=== PATIENT | male | born 1990 | race Caucasian/White ===

== ENCOUNTER 2020-04-28 02:15 | Emergency (ER) | payer SELFPAY ==
[2020-04-28 02:18] VITALS: BP 142/90; PULSE 71; RESP 18; TEMP 36.7; O2SAT 98
--- NOTE | 2020-04-28 02:20 | ED.GENADUL_ITS ---
Discharge Plan Disposition Patient Disposition: HOME Condition: Good Discharge Details Chief Complaint: DentalOral Clinical Impression: Dental abscess ED Provider: Ludin Perez and New Rx's Prescriptions: New amoxicillin-pot clavulanate [Augmentin] 875-125 mg tablet 1 tab PO BID Qty: 20 RF: 0 hydrocodone-acetaminophen [[place]] 5-325 mg tablet 1 tab PO BID PRNQty: 4 RF: 0 Discharge Instructions Instructions: Dental Abscess (ED) Additional Instructions: Take antibiotic twice a day as prescribed. Short-term may use [place] until antibiotic is working then switch to ibuprofen and acetaminophen as we discussed alternating every 4 hours. Call dentist tomorrow to arrange follow-up for next week. Return to ED for increased facial pain/swelling, fever, difficulty breathing, inability to swallow. Medical Decision Making Patient with dental fracture and resulting infection with small gingival abscess. Benzocaine applied and needle aspiration with minimal pus drained. Patient will be started on Augmentin. [place] to go pack given for short-term pain relief. Once antibiotic has been started should be able to switch to ibuprofen and acetaminophen. Given list of dentists in the area to follow-up with. Return to ED for increasing facial pain/swelling, fever, difficulty breathing, inability to swallow. HPI General Mode of arrival: ambulatory . Date/Time Provider Initiated Documentation: 04/28/20 02:20 . Limitations to Documentation: no limitations . Information obtained by: patient and RN notes reviewed . HPI Narrative: Patient presents to the ED with right lower tooth pain and swelling. Patient broke ophthalmologic last evening. This evening pain is worse and he now has swelling. Ibuprofen is not helping. He is new to the area and does not have a dentist. He denies difficulty breathing or swallowing. He has had no fever. Related Data Home Medications Medication Instructions Recorded Confirmed amoxicillin-pot clavulanate 1 tab PO BID #20 tab 04/28/20 [Augmentin] hydrocodone-acetaminophen [[place]] 1 tab PO BID PRN #4 tab 04/28/20 Previous Rx's Medication Instructions Recorded amoxicillin-pot clavulanate 1 tab PO BID #20 tab 04/28/20 [Augmentin] hydrocodone-acetaminophen [[place]] 1 tab PO BID PRN #4 tab 04/28/20 Allergies Allergy/AdvReac Type Severity Reaction Status Date / Time No Known Allergies Allergy Unverified 04/28/20 02:20 General Stated Complaint: DentalOral MARQUISE: 4 Review of Systems Constitutional Constitutional: Denies fever(s) ENT Ears, Nose, Mouth, and Throat: Reports dental pain, Denies facial pain and Denies tongue swelling Cardiovascular Cardiovascular: Denies dyspnea Respiratory Respiratory: Denies dyspnea Allergic/Immunologic Allergic/Immunologic: Denies tongue swelling [facility] Medical History No active medical problems (Acute) Surgical History No significant past surgical history (Acute) Social History Smoking/Tobacco Use Status: Current every day Tobacco Type: cigarettes Drug use: Occasionally Substance use type: marijuana Do you feel safe at home: Yes Do you feel safe in your relationship?: Yes Exam Const General: cooperative and uncomfortable Orientation: alert and oriented x3 HENMT Head: normocephalic and atraumatic Face and sinus: normal facial exam Mouth: tongue normal Teeth and gingiva: abnormal tooth or associated gingiva (Tooth #30 fractured in half with gingival abscess present) Neck Neck: trachea midline and supple Course Vital Signs Vital signs: Vital Signs Temperature 98.1 F 04/28/20 02:18 Pulse 71 04/28/20 02:18 Respiratory Rate 18 04/28/20 02:18 Blood Pressure 142/90 H 04/28/20 02:18 Pulse Oximetry 98 04/28/20 02:18 Temperature 98.1 F 04/28/20 02:18 Temperature Source Oral 04/28/20 02:18 Pulse 71 04/28/20 02:18 Respiratory Rate 18 04/28/20 02:18 Blood Pressure 142/90 H 04/28/20 02:18 Blood Pressure Position Sitting 04/28/20 02:18 Pulse Oximetry 98 04/28/20 02:18 Oxygen Delivery Method Room Air 04/28/20 02:18 Oxygen Flow Rate 0 04/28/20 02:18 Pain Level 10 04/28/20 02:18 Procedures Abscess I/D Site: Other (Gingiva) Side (if applicable): Right Local Anesthetic: Other Anesthetic (Topical benzocaine) Technique: Needle Aspiration Irrigation: No Packing used?: None
[2020-04-28] MEDS: Amoxicillin 875/Clav. 125 TAB PO (02:44)
[2020-04-28] MEDS: HYDROcodone 5/Acetaminophen 325 TAB PO (02:44)
== END 2020-04-28 02:45 | disposition home or self-care (01) ==
LOC: ER 02:49
PROVIDERS: Emergency Provider Emergency Medicine
DX: S02.5XXA Fracture of tooth (traumatic), initial encounter for closed fracture (principal); K05.319 Chronic periodontitis, localized, unspecified severity; X58.XXXA Exposure to other specified factors, initial encounter
CPT/HCPCS: 10160

== ENCOUNTER 2020-08-10 07:58 | Emergency (ER) | payer SELFPAY ==
[2020-08-10 08:02] VITALS: BP 140/82; PULSE 97; RESP 16; TEMP 37.1; O2SAT 97
--- NOTE | 2020-08-10 08:11 | ED.GENADUL_ITS ---
Discharge Plan Disposition Patient Disposition: HOME Condition: Stable Discharge Details Clinical Impression: Dog bite of left hand Primary Care Provider: None,None ED Provider: Elsa Blanca Home Meds and New Rx's Prescriptions: New amoxicillin-pot clavulanate [Augmentin] 875-125 mg tablet 1 tab PO BID 10 Days Qty: 20 RF: 0 No Action No Known Home Meds RF: 0 Discharge Instructions Instructions: Animal Bite (ED) Additional Instructions: Follow up with primary care provider in 3-5 days. Return to ED sooner if any worsening or concerns. Increase oral fluids. Please take Tylenol or Ibuprofen with food every 4-6 hours as needed for pain and swelling. Take medications as prescribed. Return to the ED for any worsening swelling, red streaks traveling up your hand or arm. Fever or any concerns. Keep wounds clean and dry. Allow to air dry at least 2 hours every day. Stand Alone Forms: Work Release Medical Decision Making 30-year-old male presents to the ER with chief complaint of dog bite to left hand which occurred last night while breaking up a dog fight. He is complaining of fifth and fourth digit pain and decreased range of motion. He has a puncture wound noted to the dorsum of his hand, small puncture wounds noted to his fifth digit and fourth digit the nail bed base. Bleeding is controlled at this time. He reports that his tetanus vaccination is up-to-date. He describes his pain is moderate to severe. No radiation. Pain is constant. He did not take any medications prior to arrival EXAM: XR HAND LT COMPLETE INDICATION: Dog bite, R/O fx, FB. COMPARISON: No exams were available for comparison TECHNIQUE: 2D digital imaging was performed. FINDINGS: Patient was unable to remove his ring. There is gauze overlying the little finger. There is soft tissue swelling. No foreign body or fracture is seen. IMPRESSION: Soft tissue injury 5th finger. No fracture or foreign body. Patient was given let topical anesthetic, ibuprofen 8 or milligrams, ice pack, wound care and Percocet prior to discharge home. Patient was placed on Augmentin and received his first dose here in the department. Discussed home care, verbalizes understanding. Imaging obtained as noted above to rule out foreign body or fracture which is within normal limits. Instructed to follow-up with PCP and discuss strict return instructions, verbalized understanding. HPI General Mode of arrival: ambulatory . Date/Time Provider Initiated Documentation: 08/10/20 08:07 . Limitations to Documentation: no limitations . Information obtained by: patient . HPI Narrative: 30-year-old male presents to the ER with chief complaint of dog bite to left hand which occurred last night while breaking up a dog fight. He is complaining of fifth and fourth digit pain and decreased range of motion. He has a puncture wound noted to the dorsum of his hand, small puncture wounds noted to his fifth digit and fourth digit the nail bed base. Bleeding is controlled at this time. He reports that his tetanus vaccination is up-to-date. He describes his pain is moderate to severe. No radiation. Pain is constant. He did not take any medications prior to arrival. Related Data Home Medications Medication Instructions Recorded Confirmed Unknown [No Known Home Meds] 08/10/20 08/10/20 amoxicillin-pot clavulanate 1 tab PO BID 10 Days #20 tab 08/10/20 [Augmentin] Previous Rx's Medication Instructions Recorded amoxicillin-pot clavulanate 1 tab PO BID 10 Days #20 tab 08/10/20 [Augmentin] Allergies Allergy/AdvReac Type Severity Reaction Status Date / Time No Known Allergies Allergy Unverified 08/10/20 08:07 General Stated Complaint: AnimalBite MARQUISE: 4 Review of Systems Narrative: All systems reviewed & are unremarkable except as noted in HPI and below Integumentary/Breasts Skin/Breast: Reports wounds (Dog bite left hand) [facility] Medical History No active medical problems Surgical History No significant past surgical history Social History Smoking/Tobacco Use Status: Current every day Tobacco Type: cigarettes Drug use: Occasionally Substance use type: marijuana Do you feel safe at home: Yes Do you feel safe in your relationship?: Yes Exam Narrative Exam Narrative: Constitutional: Alert and oriented x3. Appears stated age. Normal body habitus. Head: Normocephalic, no trauma. Chest: RRR, Normal S1, S2, distal pulses intact. Resp: Lungs clear to auscultation bilaterally, no wheezes, rales, or rhonchi. Musculoskeletal: Normal gait, 5/5 strength to all four extremities. Has puncture wound noted to the dorsum of his left hand, small superficial puncture wounds and abrasions noted to his fifth digit and fourth digit. Skin: No suspicious rashes or lesions. Capillary refill less than 2 sec. Neurologic: Cranial nerves II-XII intact. Alert and oriented x 3. DTR's intact. Hematologic/Lymphatic: No ecchymosis, no lymphadenopathy. Extrem Hand/finger images: 1. Puncture wound 2. Superficial puncture wound 3. Superficial puncture wound Course Vital Signs Vital signs: Vital Signs Temperature 37.1 C 08/10/20 08:02 Pulse 97 H 08/10/20 08:02 Respiratory Rate 16 08/10/20 08:02 Blood Pressure 140/82 08/10/20 08:02 Pulse Oximetry 97 08/10/20 08:02 Temperature 37.1 C 08/10/20 08:02 Temperature Source Skin 08/10/20 08:02 Pulse 97 H 08/10/20 08:02 Respiratory Rate 16 08/10/20 08:02 Respiratory Effort Non-Labored 08/10/20 08:05 Blood Pressure 140/82 08/10/20 08:02 Blood Pressure Position Sitting 08/10/20 08:02 Pulse Oximetry 97 08/10/20 08:02 Oxygen Delivery Method Room Air 08/10/20 08:02 Oxygen Flow Rate 0 08/10/20 08:02 Pain Level 9 08/10/20 08:02 Comment 08/10/20 08:02
[2020-08-10] MEDS: Amoxicillin 875/Clav. 125 TAB PO (08:23)
[2020-08-10] MEDS: Lidocaine/Epinephri/Tetracaine Topical Gel 3 ML TP (08:23)
[2020-08-10] MEDS: Ibuprofen 800 MG TAB PO (08:23)
--- NOTE | 2020-08-10 08:38 | DI.RAD_ITS ---
EXAM: XR HAND LT COMPLETE INDICATION: Dog bite, R/O fx, FB. COMPARISON: No exams were available for comparison TECHNIQUE: 2D digital imaging was performed. FINDINGS: Patient was unable to remove his ring. There is gauze overlying the little finger. There is soft ti ssue swelling. No foreign body or fracture is seen. IMPRESSION: Soft tissue injury 5th finger. No fracture or foreign body. DATA REPOSITORY: RADIATION DOSE DELIVERED:
--- NOTE | 2020-08-10 08:58 | NUR.NOTE ---
Animal bite reported to Lars Whitman, health officer for [employer]-[phone], bite form faxed to [facility]-[phone].Nursing Note:
[2020-08-10] MEDS: oxyCODONE 5 mg/Acetaminophen 325 mg TAB 1 TAB PO (09:09)
--- NOTE | 2020-08-11 13:28 | NUR.NOTE ---
Nursing Note: Animal Bite report form faxed to [facility]. Akilah Alberto Fax [phone]
== END 2020-08-10 09:10 | disposition home or self-care (01) ==
PROVIDERS: Emergency Provider Registered Nurse Emergency
DX: S61.432A Puncture wound without foreign body of left hand, initial encounter (principal); S61.337A Puncture wound without foreign body of left little finger with damage to nail, initial encounter; S61.335A Puncture wound without foreign body of left ring finger with damage to nail, initial encounter; W54.0XXA Bitten by dog, initial encounter
CPT/HCPCS: 99283; 73130

== ENCOUNTER 2023-05-18 08:59 | Emergency (ER) | payer OTHER, SELFPAY ==
[2023-05-18 09:02] VITALS: PULSE 82; RESP 16; TEMP 36.6; O2SAT 99
--- NOTE | 2023-05-18 09:59 | ED.GENADUL_ITS ---
Discharge Plan Disposition Patient Disposition: Home Discharge Details Clinical Impression: Dental abscess, Pain, dental Primary Care Provider: None,None ED Provider: Katie Santillan Home Meds and New Rx's Prescriptions: New penicillin V potassium 500 mg tablet 500 mg PO QID 10 Days Qty: 40 0RF Discharge Instructions Instructions: Dental Abscess (ED), Toothache (ED) Additional Instructions: Start penicillin 500 mg every 6 hours for 10 days. Alternate 600 mg of ibuprofen every 3 hours with 1000 mg of acetaminophen as needed for pain. Call your dentist in the morning and return to the emergency department for any new or worsening symptoms such as difficulty breathing talking or swallowing, change in voice or any concerns. We recommend that you take a probiotic while on antibiotics. Discharge Data Discharge Physician: Katie Santillan [facility] General Date/Time Provider Initiated Documentation: 05/18/23 09:49 . Related Data Home Medications Medication Instructions Recorded Confirmed penicillin V potassium 500 mg 500 mg PO QID dental infection 10 05/18/23 tablet days #40 tabs Previous Rx's Medication Instructions Recorded penicillin V potassium 500 mg 500 mg PO QID dental infection 10 05/18/23 tablet days #40 tabs Allergies Allergy/AdvReac Type Severity Reaction Status Date / Time No Known Allergies Allergy Unverified 05/18/23 09:05 General Stated Complaint: DentalOral MARQUISE: 3 PFSH All Active Problems (Updated 05/18/23 @ 10:04 by Katie Santillan MD) Dental abscess (Acute) Pain, dental (Acute) Medical History No active medical problems Surgical History No significant past surgical history Social History Smoking/Tobacco Use Status: Current every day Tobacco Type: cigarettes Smoking risk assessment performed?: Yes Drug use: Occasionally Substance use type: marijuana Do you feel safe at home: Yes Do you feel safe in your relationship?: Yes Course Vital Signs Vital signs: Vital Signs Temperature 36.6 C 05/18/23 09:02 Pulse 82 05/18/23 09:02 Respiratory Rate 16 05/18/23 09:02 Pulse Oximetry 99 05/18/23 09:02 Temperature 36.6 C 05/18/23 09:02 Temperature Source Tympanic 05/18/23 09:02 Pulse 82 05/18/23 09:02 Respiratory Rate 16 05/18/23 09:02 Respiratory Effort Normal, Non-Labored 05/18/23 09:14 Blood Pressure Position Sitting 05/18/23 09:02 Pulse Oximetry 99 05/18/23 09:02 Oxygen Delivery Method Room Air 05/18/23 09:02 Oxygen Flow Rate 0 05/18/23 09:02 Pain Level 9 05/18/23 09:02 PAWSS Have you Been Recently Intoxicated or Drunk Within the Last 30 days?: No Have you Ever Experienced Previous Episodes of Alcohol Withdrawal?: No Have you ever Experienced Withdrawal Seizures?: No Have you ever Experienced Delirium Tremens(DT)s?: No Have you ever undergone Alcohol Rehabilitation Treatment (i.e, inpt ot outpatient treatment programs)?: No Have you ever Experienced Blackouts?: No Have you ever Combined Alcohol with other Downers within the last 90 days?: No Have you ever Combined Alcohol with any other Substance of Abuse during the last 90 days?: No Positive Blood Alcohol level on Presentation? [PCS.BAL]: No Evidence of Increased Autonomic Activity (i.e. HR>120, tremor, sweating, agitation, nausea)?: No Result: 0
--- NOTE | 2023-05-18 10:09 | ED.GENADUL_ITS ---
Discharge Plan Disposition Patient Disposition: Home Discharge Details Clinical Impression: Dental abscess, Pain, dental Primary Care Provider: None,None ED Provider: Katie Santillan Home Meds and New Rx's Prescriptions: New penicillin V potassium 500 mg tablet 500 mg PO QID 10 Days Qty: 40 0RF Discharge Instructions Instructions: Dental Abscess (ED), Toothache (ED) Additional Instructions: Start penicillin 500 mg every 6 hours for 10 days. Alternate 600 mg of ibuprofen every 3 hours with 1000 mg of acetaminophen as needed for pain. Call your dentist in the morning and return to the emergency department for any new or worsening symptoms such as difficulty breathing talking or swallowing, change in voice or any concerns. We recommend that you take a probiotic while on antibiotics. Discharge Data Discharge Physician: Katie Santillan Medical Decision Making This is a 33-year-old male with diffuse dental disease who presents with left lower jaw pain and swelling. He is declined a dental block or needle aspiration and was requesting penicillin. I will write for penicillin and acetaminophen here and advised him to follow-up with his primary care provider. I have advised him to return for difficulty breathing talking or swallowing or for any worsening pain fever or any concerns Differential Diagnosis Differential Diagnosis: Dental caries, gingivitis, dental abscess HPI General Date/Time Provider Initiated Documentation: 05/18/23 09:49 . History of Present Illness Patient did receive the following treatments prior to arrival, NSAID and Aspirin HPI Narrative: Time seen was 9:50 AM in bed 4. The patient is a 33-year-old male who presents with left lower jaw pain and swelling. He says that several months ago filling came out of the left lower molar and initially did not cause any pain until yesterday when he developed constant pain in the left lower jaw. Overnight he noted increased swelling of the left lower jaw. He denies any change in voice, difficulty breathing talking or swallowing. He last saw dentist several months ago and was told that he needs additional work done on his teeth. He states it feels like there is a grape in his cheek. He took 2 ibuprofen last night and 3 aspirin this morning with no relief. He denies any foul tasting discharge. He denies any fevers chills shortness of breath or difficulty swallowing. The pain does not radiate. It is severe and constant. He denied any other aggravating or alleviating factors. Related Data Home Medications Medication Instructions Recorded Confirmed penicillin V potassium 500 mg 500 mg PO QID dental infection 10 05/18/23 tablet days #40 tabs Previous Rx's Medication Instructions Recorded penicillin V potassium 500 mg 500 mg PO QID dental infection 10 05/18/23 tablet days #40 tabs Allergies Allergy/AdvReac Type Severity Reaction Status Date / Time No Known Allergies Allergy Unverified 05/18/23 09:05 General Stated Complaint: DentalOral MARQUISE: 3 Review of Systems Constitutional Constitutional: Reports as per HPI, Denies chills and Denies fever(s) ENT Ears, Nose, Mouth, and Throat: Reports as per HPI, Denies change in voice, Reports dental pain, Denies dysphagia, Denies lip swelling, Denies throat swelling and Denies tongue swelling Respiratory Comments: The patient does smoke cigarettes and has some desire to quit Gastrointestinal Gastrointestinal: Denies dysphagia Allergic/Immunologic Allergic/Immunologic: Denies lip swelling, Denies throat swelling and Denies tongue swelling PFSH All Active Problems Dental abscess (Acute) Pain, dental (Acute) Medical History No active medical problems Surgical History No significant past surgical history Social History Smoking/Tobacco Use Status: Current every day Tobacco Type: cigarettes Smoking risk assessment performed?: Yes Drug use: Occasionally Substance use type: marijuana Do you feel safe at home: Yes Do you feel safe in your relationship?: Yes Exam Narrative Exam Narrative: The patient is a well-developed well-nourished male who appears mildly uncomfortable. He has normal phonation. He is afebrile with a room air O2 sat at 99%. He does not appear in any respiratory distress. Const General: cooperative, healthy appearing, well developed, well groomed and well hydrated Nutritional Appearance: average body habitus and well nourished Orientation: alert, awake and oriented x3 HENMT Head: normal to inspection, normocephalic, atraumatic and other (I cannot appreciate any significant swelling of the patient's jaw however h) Ears: hearing grossly normal bilaterally, external ears normal and TM normal on the left General nose exam: external nose normal and no nasal discharge Face and sinus: no erythema Mouth: moist mucous membranes and other (Normal phonation) Teeth and gingiva: caries and other (The patient has diffuse dental disease. ) Other: The patient has a large cavity in tooth #18. There is no evidence of Ludewig's angina and no swelling under the tongue. There is no evidence of buccal cellulitis. There is palpable swelling on the buccal aspect of the gingiva adjacent to tooth #18 and 19. There is slight fluctuance and tenderness. Airway is patent and he is handling secretions Eyes General: appearance normal, both eyes and all related structures Pupils: PERRL EOM: EOM intact bilaterally Neck Neck: normal visual inspection, full ROM, lymphadenopathy and other (There is some tender submandibular lymphadenopathy on the left. ) Other: Trachea is midline Chest Chest: normal inspection of the chest Resp Effort & Inspection: normal respiratory effort and able to speak in complete s entences Auscultation: clear to auscultation bilaterally and normal I/E ratio Cardio Rate: regular rate Rhythm: regular rhythm Heart Sounds: S1 normal and S2 normal GI Inspection: normal to inspection and non-distended Palpation: soft and nontender Skin General skin exam: no rashes or lesions noted, turgor normal, no petechiae and no purpura Rashes: no rashes Trauma: no lacerations or abrasions Neuro General: patient alert, patient awake, patient oriented x3, no meningeal signs, no focal motor deficits and CN's II-XI intact bilaterally Cranial Nerves: CN's II-XI intact bilaterally Cognition: normal cognition Speech: speech normal Gait: normal gait Motor: muscle tone normal throughout Sensory Exam: no sensory deficits noted Extrem General: normal to inspection, full ROM, capillary refill normal and normal exam except as noted Psych Appearance: grossly normal Affect: normal affect Attitude: cooperative Insight: insight good Judgment: judgment good Other: The patient appears to have capacity make medical decisions. Course I have offered the patient a dental block and explained that there is the potential for abscess. Given that the swelling just occurred over the past 12 hours it is unlikely that he does have an abscess but if an abscess has developed I have told the patient he will likely need it drained. He has declined a dental block or needle aspiration. He is telling me he just wants penicillin Vital Signs Vital signs: Vital Signs Temperature 36.6 C 05/18/23 09:02 Pulse 82 05/18/23 09:02 Respiratory Rate 16 05/18/23 09:02 Pulse Oximetry 99 05/18/23 09:02 Temperature 36.6 C 05/18/23 09:02 Temperature Source Tympanic 05/18/23 09:02 Pulse 82 05/18/23 09:02 Respiratory Rate 16 05/18/23 09:02 Respiratory Effort Normal, Non-Labored 05/18/23 09:14 Blood Pressure Position Sitting 05/18/23 09:02 Pulse Oximetry 99 05/18/23 09:02 Oxygen Delivery Method Room Air 05/18/23 09:02 Oxygen Flow Rate 0 05/18/23 09:02 Pain Level 9 05/18/23 09:02 PAWSS Have you Been Recently Intoxicated or Drunk Within the Last 30 days?: No Have you Ever Experienced Previous Episodes of Alcohol Withdrawal?: No Have you ever Experienced Withdrawal Seizures?: No Have you ever Experienced Delirium Tremens(DT)s?: No Have you ever undergone Alcohol Rehabilitation Treatment (i.e, inpt ot outpatient treatment programs)?: No Have you ever Experienced Blackouts?: No Have you ever Combined Alcohol with other Downers within the last 90 days?: No Have you ever Combined Alcohol with any other Substance of Abuse during the last 90 days?: No Positive Blood Alcohol level on Presentation? [PCS.BAL]: No Evidence of Increased Autonomic Activity (i.e. HR>120, tremor, sweating, agitation, nausea)?: No Result: 0
[2023-05-18] MEDS: Penicillin V POTASSIUM 500 MG TAB PO (10:13)
[2023-05-18] MEDS: Acetaminophen 500 MG TAB 1000 MG PO (10:13)
[2023-05-18 10:15] VITALS: PULSE 82; RESP 16; TEMP 36.6; O2SAT 99
== END 2023-05-18 10:16 | disposition home or self-care (01) ==
PROVIDERS: Emergency Provider Emergency Medicine Emergency Medical Services
DX: K04.7 Periapical abscess without sinus (principal)
CPT/HCPCS: 99283; 99284

== ENCOUNTER 2023-12-18 06:07 | Emergency (ER) | payer OTHER, SELFPAY ==
--- NOTE | 2023-12-18 06:15 | RT.EKG_ITS ---
APPROVED REPORT Exam: Resting ECG Reason for Exam: chest pain Patient Location: E HR:81 bpm ECG Measurements Heart Rate 81 AXIS MS 152 P 84 QRSd 85 QRS 84 QT 364 T 74 QTc 423 Conclusion Sinus rhythm...normal P axis, V-rate 60- 99 Probable left atrial enlargement...P >50mS, <-0.10mV V1 I have reviewed and interpreted ECG and agree with software generated interpretation.
--- NOTE | 2023-12-18 06:15 | DI.CT_ITS ---
Exam(s) CT THORAX ABD/PEL CTA EXAM: CT THORAX ABD/PEL CTA CLINICAL HISTORY: right and central back and chest pain, r/o dissect. TECHNIQUE: Imaging Protocol: Axial computed tomography images with coronal and sagittal reformatted images were created and reviewed CONTRAST MATERIAL: Intravenous: Omnipaque 350 Contrast volume:100 ml Oral: None COMPARISON: No exams were available for comparison FINDINGS: CHEST: AORTA: The diameter of the ascending thoracic aorta is normal. There is no evidence of dissection. Abdominal aorta is not enlarged. Aortoiliac segments unremarkable as are the common femoral arteries . Celiac and superior mesenteric arteries are patent as is the inferior mesenteric artery. Renal ar teries appear unremarkable. PULMONARY ARTERIES: No intraluminal filling defects to suggest acute pulmonary emboli. LUNGS: No infiltrates nor pleural effusions. No nodules. No focal findings in the trachea and ancelmo tem bronchi. No bronchiectasis. MEDIASTINUM: There is no hilar nor mediastinal adenopathy. Visualized thyroid unremarkable. CARDIAC: Heart size is normal. There is no pericardial effusion. AORTA: Caliber of the thoracic aorta is within normal limits.There is no evidence of aortic dissectio n. No shift of the interventricular septum. ABDOMEN: There is no evidence of abdominal aortic aneurysm nor dissection.There is no aneurysmal dilatation of the common iliac arteries.The celiac and superior mesenteric arteries are patent. There is no ascites. LIVER: There are no focal hepatic lesions nor dilatation of intrahepatic ducts. GALLBLADDER/BILIARY: No obvious gallbladder pathology. CBD is not dilated. PANCREAS: No evidence of pancreatic mass nor dilatation of the pancreatic duct. SPLEEN: Spleen is not enlarged. There are no intrasplenic lesions. Splenic and portal veins are serna nt. ADRENALS: There are no significant adrenal masses. KIDNEYS: No cysts evident. No calculi nor hydronephrosis. No solid renal masses. ABDOMINAL AORTA: The abdominal aorta is not enlarged. LYMPH NODES: There is no retroperitoneal nor para-aortic adenopathy. No obvious mesenteric masses. ABDOMINAL WALL: No evidence of significant anterior abdominal wall hernia. GI: There is no evidence of bowel obstruction, free air, nor abscess. PELVIS: LYMPH NODES: There is no intrapelvic nor inguinal adenopathy. GI: No evidence of appendicitis.No evidence of sigmoid diverticulitis. URINARY BLADDER: No calculi nor masses evident REPRODUCTIVE: Prostate size normal. Seminal vesicles unremarkable OSSEOUS: No significant osseous lesions. No fractures.z IMPRESSION: 1. No evidence of aortic aneurysm nor dissection. No pericardial effusion. Normal heart size. 2. No evidence of acute pulmonary emboli. No pulmonary infarcts. No focal pulmonary findings and no pleural effusions. 3. No significant acute findings in the abdomen pelvis Called by myself to ER physician. RADIATION DOSE DELIVERED: 624.9mGy.cm Total DLP DATA REPOSITORY: All CT scans at this facility are submitted to the National Radiology Data Registry (NRDR) Dose Index Registry (DIR) with the [employer] (ACR). RADIATION OPTIMIZATION: All CT scans at this facility use at least one of these dose optimization te chniques: automated exposure control; mA and/or kV adjustment per patient size (includes targeted exa ms where dose is matched to clinical indication); or iterative reconstruction.
[2023-12-18] MEDS: MORPHine 4 MG/ML SYR IVP (06:23)
[2023-12-18 06:31] VITALS: BP 154/93; PULSE 112; RESP 22; TEMP 37.1; O2SAT 99
[2023-12-18 06:34] VITALS: BP 154/93; PULSE 112; RESP 22; TEMP 37.1; O2SAT 99
[2023-12-18] MEDS: Normal Saline 1,000 ML 1000 ML IV (06:35)
[2023-12-18 06:36] LABS: Lactate 0.9 mmol/L (0.6-1.4)
[2023-12-18 06:43] LABS: Abs Immature Grans 0.02 10^3/uL (0.0-0.06); Absolute Basophil Count 0.05 10^3/uL (0.0-0.2); Absolute Eosinophil Count 0.25 10^3/uL (0.0-0.7); Absolute Lymphocyte Count 2.58 10^3/uL (1.2-3.4); Absolute Monocyte Count 0.93 10^3/uL (0.1-0.8); Absolute Neutrophil Count 5.35 10^3/uL (1.2-6.7); Basophils % 0.5; Eosinophils % 2.7; HCT 45.1 % (40.0-50.0); HGB 15.6 g/dL (13.5-17.5); Immature Grans % 0.2; Lymphocytes % 28.1; MCH 31.2 pg (27.0-33.0); MCHC 34.6 % (32.0-36.0); MCV 90 fL (80-95); MPV 9.9 fL (8.0-11.0); Monocytes % 10.1; Neutrophils % 58.4; Platelet Count 274 10^3/uL (130-400); RDW 12.7 % (11.8-14.1); WBC 9.18 10^3/uL (4.4-10.8)
[2023-12-18] MEDS: Omnipaque 350 MG/ML 100 ML BTL IJ (06:54)
[2023-12-18] MEDS: Normal Saline - Diluent 50 ML VIAL IJ (06:55)
[2023-12-18] MEDS: Normal Saline Flush 10 ML SYR IVP (06:56)
--- NOTE | 2023-12-18 06:57 | ED.GENADUL_ITS ---
[facility] General Date/Time Provider Initiated Documentation: 12/18/23 06:23 . HPI Narrative: 33-year-old male who denies any significant past medical history who presents today for evaluation of right flank pain. Patient states that yesterday he developed a sudden onset right-sided abdominal/flank/chest pain which was severe in nature. He describes it as sharp and stabbing. It is worse when he coughs. Does not radiate to the groin. He denies any urinary complaints. No vomiting or diarrhea. He denies ever having symptoms like this in the past. He has not taken anything for the pain. 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 No other complaints at this time otherwise. No other modifying factors. Related Data Allergies Allergy/AdvReac Type Severity Reaction Status Date / Time No Known Allergies Allergy Unverified 05/18/23 09:05 General Stated Complaint: FlankPain MARQUISE: 3 Review of Systems All systems reviewed & are unremarkable except as noted in HPI and below Exam Narrative Exam Narrative: 1.Const: Well-nourished, Well-developed, appearing stated age 2.Eyes: PERRL, no conjunctival injection, and symmetrical lids. 3.ENT: Atraumatic external nose and ears. Moist MM. Neck: Symmetric, trachea midline, No thyromegaly. 4.CVS: +S1/S2, No murmurs or gallops. Peripheral pulses 2+ and equal in all extremities. Brisk capillary refill in all extremities. 5.RESP: Unlabored respiratory effort. Clear to auscultation bilaterally. No wheezes rales or rhonchi 6.GI: Soft, Nontender/Nondistended, No hepatosplenomegaly. No reproducible CVA tenderness. No reproducible abdominal pain on palpation. 7.MSK: Normocephalic/Atraumatic, Extremities w/o deformity or ttp No cyanosis or clubbing, Normal movement of all extremities 8.Skin: Warm, Dry. No rashes or lesions. 9.Neuro: casino investigator II-XII grossly intact. Sensation grossly intact, no focal neurologic deficits. 10.Psych: (AAO) x3. Appropriate mood and affect Course Vital Signs Vital signs: Vital Signs Temperature 37.1 C 12/18/23 06:31 Pulse 112 H 12/18/23 06:31 Respiratory Rate 22 12/18/23 06:31 Blood Pressure 154/93 H 12/18/23 06:31 Pulse Oximetry 99 12/18/23 06:31 Temperature 37.1 C 12/18/23 06:34 Temperature Source Oral 12/18/23 06:34 Pulse 112 H 12/18/23 06:34 Respiratory Rate 22 12/18/23 06:34 Respiratory Effort Normal 12/18/23 06:33 Blood Pressure 154/93 H 12/18/23 06:34 Blood Pressure Position Supine 12/18/23 06:34 Pulse Oximetry 99 12/18/23 06:34 Oxygen Delivery Method Room Air 12/18/23 06:34 Oxygen Flow Rate 0 12/18/23 06:34 Pain Level 10 12/18/23 06:34 Lab/Test Results Lab/Test Results: Laboratory Tests Range/Units 12/18/23 12/18/23 06:20 06:30 WBC (4.4-10.8) 10^3/uL 9.18 RBC (4.36-5.78) 10^6/uL 5.00 Hgb (13.5-17.5) g/dL 15.6 Hct (40.0-50.0) % 45.1 MCV (80-95) fL 90 MCH (27.0-33.0) pg 31.2 MCHC (32.0-36.0) % 34.6 RDW (11.8-14.1) % 12.7 Plt Count (130-400) 10^3/uL 274 MPV (8.0-11.0) fL 9.9 Immature Gran % 0.2 Neutrophils % 58.4 Lymphocytes % 28.1 Monocytes % 10.1 Eosinophils % 2.7 Basophils % 0.5 Nucleated RBC % (0.0-0.3) % 0.0 Absolute Neutrophils (1.2-6.7) 10^3/uL 5.35 Absolute Lymphocytes (1.2-3.4) 10^3/uL 2.58 Absolute Monocytes (0.1-0.8) 10^3/uL 0.93 H Absolute Eosinophils (0.0-0.7) 10^3/uL 0.25 Absolute Basophils (0.0-0.2) 10^3/uL 0.05 VBG Lactate (0.6-1.4) mmol/L 0.9 Medical Decision Making 33-year-old male who denies any significant past medical history who presents today for evaluation of right flank pain. Patient states that yesterday he developed a sudden onset right-sided abdominal/flank/chest pain which was severe in nature. He describes it as sharp and stabbing. It is worse when he coughs. Does not radiate to the groin. He denies any urinary complaints. No vomiting or diarrhea. He denies ever having symptoms like this in the past. He has not taken anything for the pain. 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 No other complaints at this time otherwise. No other modifying factors. Physical exam demonstrates no reproducible flank or abdominal pain, however the patient appears to be in extreme pain borderline extremis. Seems to be isolated to the right chest and right flank right upper quadrant of his abdomen. States that it does go to the back. Differential does include dissection, PE, however kidney stone and cholecystitis is also on the differential. Will treat the patient's pain, rehydrate, evaluate for concerning etiologies, monitor closely and reassess. Patient will be signed out to my colleague Dr. Hernández for follow- up on imaging. Quality:[facility] Health Related Social Needs: No Data to Display [facility] Medical History No active medical problems Surgical History No significant past surgical history Social History Smoking/Tobacco Use Status: Current every day Tobacco Type: cigarettes Smoking risk assessment performed?: Yes Alcohol Intake: current Alcohol Intake frequency: a few times a month Drug use: Occasionally Substance use type: marijuana Do you feel safe at home: Yes Do you feel safe in your relationship?: Yes Discharge Plan Discharge Details Chief Complaint: FlankPain Primary Care Provider: Unknown,Unknown ED Provider: Yunior Dove
[2023-12-18 06:59] LABS: INR 1.1 (0.9-1.1); PTT Activated 28.8 sec (23.6-32.8)
[2023-12-18 07:06] LABS: ALT 20 U/L (16-63); AST 15 U/L (15-37); Albumin 4.6 g/dL (3.4-5.0); Alkaline Phosphatase 57 U/L (46-116); Anion Gap 6.9 mmol/L (3-11); BUN 13 mg/dL (7-18); Bilirubin, Total 1.3 mg/dL (0.2-1.0); CO2 28.1 mmol/L (21.0-32.0); CREATININE 1.1 mg/dL (0.70-1.30); Calcium 9.5 mg/dL (8.5-10.1); Chloride 102 mmol/L (98-107); Glucose 129 mg/dL (74-106); Lipase 32 U/L (16-77); Sodium 137 mmol/L (136-145); Total Protein 8.4 g/dL (6.4-8.2)
[2023-12-18 07:09] LABS: Troponin I < 50 ng/L (< or =60)
--- NOTE | 2023-12-18 07:22 | DI.VRAD_ITS ---
Addendum created by Dk Muniz MD on 12/18/2023 7:53:44 AM EST: COMMENT: THIS REPORT CONTAINS FINDINGS THAT MAY BE CRITICAL TO PATIENT CARE. The exam findings were verbally communicated by me to LUPILLO RIBEIRO via telephone conference at 7:53 AM EST on 12/18/2023. The findings were acknowledged and understood. Initial report created on 12/18/2023 7:50:50 AM EST: PROCEDURE INFORMATION: Exam: CTA Abdomen and Pelvis With Contrast Exam date and time: 12/18/2023 6:42 AM Age: 33 years old Clinical indication: Chest wall pain; Abdominal pain; Generalized; Additional info: Right and central back and chest pain, R/O dissect TECHNIQUE: Imaging protocol: Computed tomographic angiography of the abdomen and pelvis with contrast. Exam focused on the arteries. 3D rendering (Not supervised by radiologist): MIP and/or 3D reconstructed images were created by the technologist. Contrast material: OMNI 350; Contrast volume: 100 ml; Contrast route: INTRAVENOUS (IV); COMPARISON: No relevant prior studies available. FINDINGS: Aorta: No aortic aneurysm. No aortic dissection. Celiac trunk and mesenteric arteries: No occlusion or significant stenosis. Renal arteries: No occlusion or significant stenosis. Accessory renal artery on the left Right iliac arteries: No occlusion or significant stenosis. Left iliac arteries: No occlusion or significant stenosis. Liver: No mass. Gallbladder and bile ducts: No calcified stones. No ductal dilation. Pancreas: No mass. No ductal dilation. Spleen: No splenomegaly. Adrenal glands: Unremarkable. No mass. Kidneys and ureters: No solid mass. No hydronephrosis. Stomach and bowel: No obstruction. Mild gastric antral wall thickening consistent with gastritis, no ulcer identified. Appendix: No evidence of appendicitis. Intraperitoneal space: No free air. No significant fluid collection. Lymph nodes: No enlarged lymph nodes. Urinary bladder: Unremarkable. No mass. Reproductive: Unremarkable as visualized. Bones/joints: No acute fracture. Soft tissues: No acute findings. IMPRESSION: 1. Mild gastric antral wall thickening consistent with gastritis, no ulcer identified. 2. No aortic dissection. Dictated and Authenticated by: Dk Muniz MD. Ordering:NICOLA Mojica MD
[2023-12-18] MEDS: diazePAM 10 MG/2 ML SYR 5 MG IVP (07:36)
[2023-12-18] MEDS: Lidocaine 5% Patch 1 PATCH TP (07:37)
[2023-12-18] MEDS: Ketorolac 15 MG/ML VIAL IVP (07:53)
[2023-12-18 08:11] LABS: Bilirubin Negative (Negative); Blood Negative (Negative); Clarity Clear (Clear); Glucose Negative (Negative); Ketones Negative (Negative); Leukocyte Esterase Negative (Negative); Nitrite Negative (Negative); Urobilinogen 0.2 mg/dL (Up to 0.2)
--- NOTE | 2023-12-18 08:32 | W.EDPROG ---
Date of service: 12/18/23 Time of Service: 08:32 Medical Decision Making Patient signed out to me pending urinalysis, CTA chest abdomen pelvis negative along with lab work and urinalysis. Patient stable he localizes the pain to the right CVA area has reproducible pain in this area no abdominal tenderness currently no rashes to suggest shingles. He has not had any fevers chills and denies any IV drug use so I doubt pathology such as spinal epidural abscess. He has had some stressors in his life including his [id number] nearing and his most of his family out in [place] with him. 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 Suspect combination of musculoskeletal back pain possibly muscle spasm. Given reassuring workup feel he is stable for discharge and can follow-up with either express care or his primary care if not better within a week or 2. Return precautions given Differential Diagnosis Differential Diagnosis: muscle spasm, back strain Quality:[facility] Health Related Social Needs: No Data to Display Sign Out Sign Out Data: Sign Out Comment: Right flank pain, follow-up on imaging reviewed and reassessment. Last updated by Yunior Dove DO at 12/18/23 07:49 Discharge Plan Disposition Patient Disposition: Home Condition: Stable Discharge Details Clinical Impression: Back pain Primary Care Provider: Unknown,Unknown ED Provider: Misael Hernández Home Meds and New Rx's Prescriptions: New cyclobenzaprine 10 mg tablet 10 mg PO TID PRNQty: 20 0RF Discharge Instructions Instructions: Back Pain (ED) Additional Instructions: your lab work and cat scan of your chest/abdomen/pelvis did not show any concerning findings at this time. This is likely musculoskeletal back pain with a component of muscle spasm if not better within 1-2 weeks follow up with your primary care provider or express care if you feel more ill or develop new symptoms such as fevers or persistent vomiting return to the emergency department
[2023-12-18] MEDS: HYDROmorphone 2 MG/ML SYR 0.5 MG IVP (08:40)
[2023-12-18 09:00] VITALS: BP 121/93; PULSE 76; RESP 16; TEMP 36.4; O2SAT 98
== END 2023-12-18 09:02 | disposition home or self-care (01) ==
PROVIDERS: Student in an Organized Health Care Education/Training Program; Emergency Provider Emergency Medicine
DX: R10.9 Unspecified abdominal pain (principal); M54.50 Low back pain, unspecified; F17.210 Nicotine dependence, cigarettes, uncomplicated
CPT/HCPCS: 00123; 71275; 80053; 83690; 93005; 96361; 96374; 96375; 99285; 74174; 81003; 83605; 84484; 85025; 85610; 85730; 93010; 99284; J1170; J1885; J2270; J3360; J3490

== ENCOUNTER 2024-06-23 15:26 | Emergency (ER) | payer MEDICAID, SELFPAY ==
[2024-06-23 15:27] VITALS: BP 121/74; PULSE 74; RESP 20; TEMP 36.8; O2SAT 99
[2024-06-23] MEDS: Fluorescein STRIPS 100/BOX 1 MG OP (15:41)
[2024-06-23] MEDS: Tetracaine 0.5% 4 ML BTL (15:44)
--- NOTE | 2024-06-23 16:03 | ED.GENADUL_ITS ---
Discharge Plan Disposition Patient Disposition: Home Condition: Stable Discharge Details Clinical Impression: Corneal abrasion Primary Care Provider: Unknown,Unknown ED Provider: Yvette Vo Home Meds and New Rx's Prescriptions: New ketorolac [Acular] 0.5 % drops 1 drp ophthalmic (eye) QID Qty: 5 0RF erythromycin 5 mg/gram (0.5 %) ointment 0.5 inch ophthalmic (eye) TID Qty: 3.5 0RF Discharge Instructions Instructions: Corneal Abrasion ED Additional Instructions: use erythromycin 1/2 inch strip every 6 hours while awake use acular as prescribed you may use tetracaine drops, 1 drop per hour for no more than 24 hours with persistent pain, vision changes, or worsening complaints, please be reevaluated with symptoms lasting >72 hours, please be reassessed HPI General Date/Time Provider Initiated Documentation: 06/23/24 15:38 . HPI Narrative: This 34-year-old male presents with injury to right eye. States that a piece of wood kicked back when he was hammering hit him in the eye. He states he is having trouble opening his eye secondary to pain and states is light sensitive. Denies any additional injuries. Was wearing safety glasses per patient. Otherwise reportedly healthy. Related Data Home Medications ?Medication ?Instructions ?Recorded ?Confirmed erythromycin 5 mg/gram (0.5 %) eye 0.5 inch ophthalmic (eye) TID #3.5 06/23/24 ointment grams ketorolac 0.5 % eye drops (Acular) 1 drp ophthalmic (eye) QID #5 mL 06/23/24 Previous Rx's ?Medication ?Instructions ?Recorded erythromycin 5 mg/gram (0.5 %) eye 0.5 inch ophthalmic (eye) TID #3.5 06/23/24 ointment grams ketorolac 0.5 % eye drops (Acular) 1 drp ophthalmic (eye) QID #5 mL 06/23/24 Allergies Allergy/AdvReac Type Severity Reaction Status Date / Time No Known Allergies Allergy Unverified 06/23/24 15:31 General Stated Complaint: EyeProblem MARQUISE: 2 Exam Eyes Sclera: scleral abnormality Cornea: corneas abnormal and fluorescein used Pupils: PERRL EOM: EOM intact bilaterally Other: No foreign bodies under lids, no proptosis, no periorbital trauma visualized Course Vital Signs Vital signs: Vital Signs Temperature 36.8 C 06/23/24 15:27 Pulse 74 06/23/24 15:27 Respiratory Rate 20 06/23/24 15:27 Blood Pressure 121/74 06/23/24 15:27 Pulse Oximetry 99 06/23/24 15:27 Temperature 36.8 C 06/23/24 15:27 Pulse 74 06/23/24 15:27 Respiratory Rate 20 06/23/24 15:27 Blood Pressure 121/74 06/23/24 15:27 Pulse Oximetry 99 06/23/24 15:27 Oxygen Delivery Method Room Air 06/23/24 15:27 Oxygen Flow Rate 0 06/23/24 15:27 Pain Level 10 06/23/24 15:27 Medical Decision Making This 34-year-old male presents with right eye injury. He has a small abrasion to the 7 o'clock position overlying the iris. For pain control I did use Cyclogyl 3 drops to dilate the eye. Patient reports symptomatic improvement. Will follow-up with [facility] with persistent symptoms. Will use erythromycin 3 times daily and given Acular for home. Return precautions reviewed and patient expressed understanding. Visual acuity reviewed Quality:[facility] Health Related Social Needs: No Data to Display [facility] All Active Problems (Updated 06/23/24 @ 16:28 by PAIGE Jerome) Corneal abrasion (Acute) Medical History No active medical problems Surgical History No significant past surgical history Social History Smoking/Tobacco Use Status: Current every day Tobacco Type: cigarettes Smoking risk assessment performed?: Yes Alcohol Intake: current Alcohol Intake frequency: a few times a month Drug use: Occasionally Substance use type: marijuana Do you feel safe at home: Yes Do you feel safe in your relationship?: Yes
[2024-06-23 17:00] VITALS: BP 121/74; PULSE 74; RESP 20; TEMP 36.8; O2SAT 99
== END 2024-06-23 16:32 | disposition home or self-care (01) ==
PROVIDERS: Emergency Provider Physician Assistant
DX: S05.01XA Injury of conjunctiva and corneal abrasion without foreign body, right eye, initial encounter (principal); Y93.H3 Activity, building and construction
CPT/HCPCS: 99283; 99282

== ENCOUNTER 2024-07-28 11:41 | Emergency (ER) | payer MEDICAID, SELFPAY ==
--- NOTE | 2024-07-28 11:30 | RT.EKG_ITS ---
APPROVED REPORT Exam: Resting ECG Reason for Exam: Dyspnea Patient Location: E HR:95 bpm ECG Measurements Heart Rate 95 AXIS CO 138 P 86 QRSd 90 QRS 87 QT 343 T 56 QTc 433 Conclusion Sinus rhythm...normal P axis, V-rate 60- 99 Right atrial enlargement...P>0.25mV 2 lds or<-0.24mV aVR/aVL ST elev, probable normal early repol pattern...ST elevation, age<55
[2024-07-28 11:44] VITALS: BP 111/75; PULSE 97; RESP 18; TEMP 36; O2SAT 95
--- NOTE | 2024-07-28 12:57 | W.ED.GENAD ---
Discharge Plan Disposition Patient Disposition: Home Condition: Stable Discharge Details Clinical Impression: Cough, Pneumonia Primary Care Provider: Unknown,Unknown ED Provider: Misael Hernández Home Meds and New Rx's Prescriptions: New prednisone 20 mg tablet 60 mg PO DAILY 4 Days Qty: 12 0RF levofloxacin 750 mg tablet 750 mg PO DAILY Qty: 5 0RF Continued ketorolac [Acular] 0.5 % drops 1 drp ophthalmic (eye) QID Qty: 5 0RF erythromycin 5 mg/gram (0.5 %) ointment 0.5 inch ophthalmic (eye) TID Qty: 3.5 0RF Discharge Instructions Additional Instructions: You are being treated for a lung infection You can use the inhaler 2 puffs every 2 hours as needed Take the levofloxacin and prednisone as prescribed You can take 1000 mg of acetaminophen and 600 mg of ibuprofen every 6 hours as needed If you feel more ill, have difficulty breathing or persistent vomiting return to the emergency department for reevaluation HPI General Mode of arrival: ambulatory. Date/Time Provider Initiated Documentation: 07/28/24 11:42. Limitations to Documentation: no limitations. Information obtained by: patient. History of Present Illness 34 year old M presents to the emergency department with the chief complaint of cough, described as moderate, Patient started experiencing this week(s) (1) and it has been constant. No exacerbating factors reported . Patient notes denies chest pain. Patient did receive the following treatments prior to arrival, none Related Data Home Medications ?Medication ?Instructions ?Recorded ?Confirmed erythromycin 5 mg/gram (0.5 %) eye 0.5 inch ophthalmic (eye) TID #3.5 06/23/24 ointment grams ketorolac 0.5 % eye drops (Acular) 1 drp ophthalmic (eye) QID #5 mL 06/23/24 levofloxacin 750 mg tablet 750 mg PO DAILY #5 tabs 07/28/24 prednisone 20 mg tablet 60 mg (3 x 20 mg) PO DAILY 4 days 07/28/24 #12 tabs Previous Rx's ?Medication ?Instructions ?Recorded erythromycin 5 mg/gram (0.5 %) eye 0.5 inch ophthalmic (eye) TID #3.5 06/23/24 ointment grams ketorolac 0.5 % eye drops (Acular) 1 drp ophthalmic (eye) QID #5 mL 06/23/24 levofloxacin 750 mg tablet 750 mg PO DAILY #5 tabs 07/28/24 prednisone 20 mg tablet 60 mg (3 x 20 mg) PO DAILY 4 days 07/28/24 #12 tabs Allergies Allergy/AdvReac Type Severity Reaction Status Date / Time No Known Allergies Allergy Unverified 07/28/24 11:47 General Stated Complaint: RespSymp MARQUISE: 3 Review of Systems All systems reviewed & are unremarkable except as noted in HPI and below Constitutional Constitutional: Denies chills, Reports fever(s) and Denies weakness Cardiovascular Cardiovascular: Denies chest pain Respiratory Respiratory: Reports cough Gastrointestinal Gastrointestinal: Denies abdominal pain, Denies nausea and Denies vomiting Integumentary/Breasts Skin/Breast: Denies rash Neurologic Neurologic: Denies weakness Exam Const General: no acute distress Orientation: alert HENMT Head: normal to inspection Ears: external ears normal General nose exam: external nose normal Mouth: moist mucous membranes Eyes General: appearance normal, both eyes and all related structures Neck Neck: normal visual inspection Resp Effort & Inspection: normal respiratory effort and able to speak in complete sentences Auscultation: wheezes Cardio Rate: regular rate Skin General skin exam: no rashes or lesions noted Neuro General: patient alert and patient oriented x3 Extrem General: normal to inspection Psych Mental Status: mental status grossly normal Course Vital Signs Vital signs: Vital Signs Temperature 36.0 C L 07/28/24 11:44 Pulse 97 H 07/28/24 11:44 Respiratory Rate 18 07/28/24 11:44 Blood Pressure 111/75 07/28/24 11:44 Pulse Oximetry 95 07/28/24 11:44 Temperature 36.0 C L 07/28/24 11:44 Pulse 97 H 07/28/24 11:44 Respiratory Rate 18 07/28/24 11:44 Blood Pressure 111/75 07/28/24 11:44 Blood Pressure Position Sitting 07/28/24 11:44 Pulse Oximetry 95 07/28/24 11:44 Oxygen Delivery Method Room Air 07/28/24 11:44 Oxygen Flow Rate 0 07/28/24 11:44 Pain Level 8 07/28/24 11:44 Comment taking tylenol - last dose 1 hour user acceptance tester 07/28/24 11:44 Medical Decision Making 34-year-old male who denies any significant chronic medical problems comes in with 1 week of cough and several days of subjective fevers. He denies any vomiting, rashes. He says family members in his house have had similar symptoms. He is alert and oriented speaking clearly in no new respiratory distress. He has mild apical wheezing otherwise clear lung sounds, he is a former smoker. Suspect URI, will check Fluvid and a chest x-ray. Will treat his symptoms with albuterol and prednisone and reassess. xrays shows right lower lobe infiltrate, pt stable no hypoxia. Will start him on levofloxacin for CAP, advised to f/u with pcp and return precautions given Differential Diagnosis Differential Diagnosis: uri, pneumonia, covid Quality:[facility]OH Health Related Social Needs: No Data to Display PFSH All Active Problems (Updated 07/28/24 @ 13:51 by Misael Hernández MD) Pneumonia (Acute) Cough (Acute) Medical History No active medical problems Surgical History No significant past surgical history Social History Smoking/Tobacco Use Status: Current every day Tobacco Type: cigarettes Smoking risk assessment performed?: Yes Alcohol Intake: current Alcohol Intake frequency: a few times a month Drug use: Occasionally Substance use type: marijuana Do you feel safe at home: Yes Do you feel safe in your relationship?: Yes
[2024-07-28 12:58] LABS: COVID-19 PCR Negative (Negative); Influenza A PCR Negative (Negative); Influenza B PCR Negative (Negative); RSV PCR Negative (Negative); Source Nasopharynx
--- NOTE | 2024-07-28 13:25 | DI.RAD_ITS ---
Exam(s) XR CHEST 2V PA LATERAL EXAM: XR CHEST 2V PA LATERAL CLINICAL HISTORY: cough. TECHNIQUE: 2D digital imaging was performed. COMPARISON: No exams were available for comparison FINDINGS: 2 views: Heart size is normal. The mediastinum is not widened. Left lung is clear but there is significant infiltrate in the right middle lobe. No pleural effusion s. IMPRESSION: Significant right middle lobe infiltrate. Stat read DATA REPOSITORY: RADIATION DOSE DELIVERED:
[2024-07-28] MEDS: Albuterol HFA 8 GM 60 PUFF INH IH (14:05)
[2024-07-28] MEDS: predniSONE 20 MG TAB 60 MG PO (14:06)
[2024-07-28] MEDS: levoFLOXacin 500 MG, levoFLOXacin 250 MG 750 MG PO (14:06)
[2024-07-28 14:10] VITALS: BP 132/86; PULSE 88; RESP 24; TEMP 37; O2SAT 95
== END 2024-07-28 14:15 | disposition home or self-care (01) ==
PROVIDERS: Emergency Provider Emergency Medicine
DX: J18.9 Pneumonia, unspecified organism (principal); R05.1 Acute cough
CPT/HCPCS: 87637; 93005; 99283; 71046; 93010; J7512